=== PATIENT | female | born 1960 | race Caucasian/White ===

== ENCOUNTER 2020-12-02 15:01 | Emergency (ER) | payer OTHER ==
[~2020-12-02 15:01] MED LIST: ATIVAN0.5 MG PO; B 12; CERTAGEN1 EACH PO; DEPAKOTE250 MG PO; FLEXERIL10 MG PO; IBUPROFEN800 MG PO; METFORMIN HCL500 MG PO; ZOCOR20 MG PO; ZOLOFT100 MG PO
== END 2020-12-02 20:38 | disposition other institution (70) ==
LOC: FER 15:01
DX: S72.401A Unspecified fracture of lower end of right femur, initial encounter for closed fracture (principal); E11.9 Type 2 diabetes mellitus without complications; Z88.8 Allergy status to other drugs, medicaments and biological substances; Z88.1 Allergy status to other antibiotic agents; W19.XXXA Unspecified fall, initial encounter; Y92.009 Unspecified place in unspecified non-institutional (private) residence as the place of occurrence of the external cause
CPT/HCPCS: 73560; 96374; 96375; 96376; J1170; J2405; J7030